=== PATIENT | male | born 1985 | race Caucasian/White ===

== ENCOUNTER 2024-05-13 13:26 | Emergency (ER) | payer OTHER, SELFPAY ==
--- NOTE | 2024-05-13 13:41 | ED_ITS ---
HPI - General Adult General Chief complaint: ETOH/Substance Use Stated complaint: STD testing/Substance abuse help Time Seen by Provider: 05/13/24 20:53 Source: patient, RN notes reviewed and old records reviewed Mode of arrival: ambulatory Limitations: no limitations History of Present Illness ED Provider: Gerald SERRANO narrative: 39-year-old male presents for evaluation of ?I want to get clean. ? Patient states that he actively uses heroin, fentanyl, cocaine. He last use this morning. He reports he uses a bundle to a bundle and a half of heroin daily. He endorses generalized body aches but no other complaints pain Denies any headache, chest pain, shortness of breath pain Denies any abdominal pain, nausea vomiting He is interested in STD testing. He denies any specific known exposure. Denies any burning with urination, urethral discharge Patient reports a history of ?mental health issues but no medical issues. Patient states that he is not currently depressed or suicidal Related Data Previous Rx's ?Medication ?Instructions ?Recorded doxycycline hyclate 100 mg capsule 100 mg PO BID 10 days #20 caps 05/14/24 Allergies Allergy/AdvReac Type Severity Reaction Status Date / Time amitriptyline Allergy Eye Verified 05/13/24 13:45 Swelling Review of Systems 2 Constitutional: Constitutional: Reports body ache(s), Denies chills, Denies fever(s), Denies frequent falls and Denies headache(s) ENT: Denies headache(s) and Denies sore throat Cardiovascular: Cardiovascular: Denies chest pain and Denies dyspnea Respiratory: Respiratory: Denies cough and Denies dyspnea Gastrointestinal: Gastrointestinal: Denies abdominal pain, Denies nausea and Denies vomiting Musculoskeletal: Musculoskeletal: Denies back pain Integumentary/Breasts: Skin/Breast: Denies rash Neurologic: Denies frequent falls and Denies headache(s) Psychiatric: Psychiatric: Denies anxiety, Denies depression and Denies suicidal ideation PMF Social History Social History Smoked in Last 30 Days: Yes Use of substances other than those prescribed or required for medical reasons: Yes Substance Use Type: Heroin Substance Use Frequency: Daily Advance Directives: No Advance Directives Information Provided: No Physical Exam ED Vital Signs: Vital Signs - 24 hr 05/13/24 20:54 05/14/24 04:34 05/14/24 08:57 Temperature 97.7 F 98.4 F Pulse Rate 76 65 69 Respiratory Rate 16 14 17 Blood Pressure 133/53 L 125/61 113/52 L Pulse Oximetry 94 96 98 Oxygen Delivery Method Room Air Room Air Room Air 05/14/24 13:31 Temperature Pulse Rate 67 Respiratory Rate 18 Blood Pressure 123/63 Pulse Oximetry 98 Oxygen Delivery Method Room Air BMI result Body Mass Index 26.2 Const General: healthy appearing, comfortable, no acute distress, alert and awake Nutritional Appearance: well nourished Orientation/consciousness: patient oriented x3 HENMT Head: Yes normocephalic and Yes atraumatic Eyes Eyelids: Yes eyelids normal Conjunctivae: conjunctivae normal Sclerae: sclerae normal Corneas: corneas normal Pupils: Equal, round and reactive pupils present EOM: EOMs intact bilaterally Neck Neck: Yes full ROM Resp Effort & Inspection: normal respiratory effort, able to speak in complete sentences, no audible wheezes and not labored Auscultation: clear to auscultation bilaterally Skin General skin exam: elasticity normal Neuro General: patient oriented x3 Cranial nerves: Yes Equal, round and reactive pupils present and Yes Bilaterally intact EOM present Cognition (Neuro): normal cognition Extrem Other: Moving all extremities well without any obvious deformities Course Course Course Narrative: This is a Rapid Medical Examination (RME) performed by Senthil Haas PA-C in triage. Full HPI, ROS, assessment and treatment plan per primary provider in the Main ED. 39 yo male hx of IVDU, currently experiencing homelessness, here requesting detox. also requesting STD testing. admits to unprotected intercourse w/ STD exposure. denies dysuria, penile discharge, lesions. hx of herpes. requesting detox from heroin. last injected this morning. denies etoh consumption. denies si/hi. denies ah/vh/th. Plan: labs, UA, UDS, CTNG Reevaluation(s) Reevaluation #1: Patient will be going to [facility] [place] and will be sent there with a last dose letter. Will also give doxycycline for STD treatment. Time: 15:49 Medications Administered Discontinued Medications Generic Name Dose Route Start Last Admin Trade Name Freq PRN Reason Stop Dose Admin Methadone HCl 40 mg 05/14/24 10:37 05/14/24 11:44 Methadone Hcl 20 Mg/2 Ml Oral.Conc PO 05/14/24 10:38 40 mg ONCE ONE Administration Medical Decision Making Medical Decision Making [facility] Narrative: 39-year-old male with past medical history significant for substance abuse presents for evaluation requesting detox. He complains of generalized body aches but no more specific symptoms. He is afebrile, he is not tachycardic or hypoxic. His blood pressure is on the lower side at 133/53. His medical workup is significant for a mild anemia consistent with his baseline likely related to substance abuse. He has no significant electrolyte abnormalities warranting intervention. His carbon dioxide level is elevated to 32, this may be related to decreased respirations when he was using opiates this morning. He has a mild elevation of the AST and ALT consistent with his baseline also likely related to substance abuse. He has no abdominal pain, nausea vomiting. Patient's urinalysis shows a high specific gravity likely related to some mild degree of dehydration, he is able to hydrate orally. No evidence of UTI. Gonorrhea, chlamydia testing pending. He has no current symptoms and no known exposures, therefore we will defer any empiric treatment pending results of his testing Differential Diagnosis Differential Diagnoses: The differential diagnosis associated with the presentation includes Substance abuse Polysubstance abuse UTI STI Lab Data [facility] Lab Attestation statement: I reviewed the patient's lab results. 05/13/24 14:23 05/13/24 14:23 Labs: Lab Results 05/13/24 05/13/24 Range/Units 14:23 20:41 WBC 7.2 (4.8-10.8) X10*3/uL RBC 4.43 L (4.60-5.80) X10*6/uL Hgb 13.5 L (14.0-18.0) g/dl Hct 42.5 (42.0-52.0) % MCV 95.9 (80.0-98.0) fL MCH 30.5 (27.0-33.0) pg MCHC 31.8 (31.0-36.0) g/dl RDW 12.5 (11.0-16.0) % Plt Count 210 (160-400) X10*3/uL MPV 10.0 (9.4-12.4) fL Immature Gran % (Auto) 0.3 (0.0-0.4) % Neut % (Auto) 62.9 (45-73) % Lymph % (Auto) 27.8 (20-40) % [place] % (Auto) 7.3 (2-11) % Eos % (Auto) 1.1 (0-4) % Baso % (Auto) 0.6 (0-2) % Lymph # (Auto) 2.0 (1.2-4.9) X10*3/uL [place] # (Auto) 0.5 (0.1-1.2) X10*3/uL Eos # (Auto) 0.1 (0.0-0.4) X10*3/uL Baso # (Auto) 0.0 (0.0-0.2) X10*3/uL Abs Immat Gran (auto) 0.02 (0.00-0.03) X10*3/uL Absolute Neuts (auto) 4.5 (2.0-8.3) x10*3/uL Absolute Nucleated RBC 0.000 (0.0-0.012) X10*3/uL Nucleated RBC % (auto) 0.0 (0.0-0.2) /100WBC Sodium 141 (135-145) mmol/L Potassium 4.4 (3.3-5.1) mmol/L Chloride 103 (96-108) mmol/L Carbon Dioxide 32 H (22-29) mmol/L Anion Gap 10 L (12-20) BUN 23 H (9-16) mg/dL Creatinine 1.10 (0.5-1.4) mg/dL Estim Creat Clear Calc 82.6 Estimated GFR > 60 Random Glucose 138 H (60-115) mg/dL Calcium 9.5 (8.4-10.2) mg/dL Magnesium 2.1 (1.6-2.6) mg/dL Total Bilirubin 0.4 (0.0-1.0) mg/dL AST 99 H (5-37) U/L ALT 52 H (0-40) U/L Alkaline Phosphatase 94 (39-117) U/L Total Protein 7.2 (6.5-8.0) g/dL Albumin 3.9 (3.5-5.0) g/dL Lipase 90 H (8-78) U/L Urine Color Yellow Urine Appearance Clear Urine pH 5.5 (5.0-9.0) Ur Specific [place] >= 1.030 H (1.005-1.025) Urine Protein Negative (Neg-Trace) mg/dL Urine Glucose (UA) Negative (Negative) mg/dL Urine Ketones Negative (Negative) mg/dL Urine Blood Negative (Negative) Urine Nitrite Negative (Negative) Ur Leukocyte Esterase Negative (Negative) Salicylates < 5.0 L (15-30) mg/dL Urine Opiates Screen POSITIVE H (Not Detect) Ur Buprenorphine Scrn Not Detected (Not Detect) ng/mL Ur Oxycodone Screen Not Detected (Not Detect) ng/mL Urine Methadone Screen Not Detected (Not Detect) ng/mL Urine Fentanyl Screen POSITIVE H (Not Detect) Ur Barbiturates Screen Not Detected (Not Detect) Ur Phencyclidine Scrn Not Detected (Not Detect) Ur Amphetamines Screen Not Detected (Not Detect) U Benzodiazepines Scrn Not Detected (Not Detect) Urine Cocaine Screen POSITIVE H (Not Detect) U Marijuana (THC) Screen POSITIVE H (Not Detect) Ethyl Alcohol < 10 mg/dL Chlam trachomat DNA PCR NOT DETECTED (Not Detect.) N.gonorrhoeae DNA (PCR) NOT DETECTED (Not Detect.) Critical Care Time Critical Care Time Critical Care Time: No Discharge Plan Discharge Clinical Impression: Substance abuse, Screen for STD (sexually transmitted disease) Patient Disposition: Home, Self-Care Additional Instructions: Take your medications as prescribed. If you were prescribed antibiotics today, it is important that you take your medication to their entirety, do not skip any doses, do not finish them early. Follow-up with your primary care provider this week. Return to the emergency department with new or worsening symptoms. Such as fevers, chills, chest pain, shortness of breath, nausea, vomiting, dizziness, headache, vision changes, lethargy In case of emergency call 911 Prescriptions: New doxycycline hyclate 100 mg capsule 100 mg PO BID 10 Days Qty: 20 0RF Referrals: Chiquita Brand CNP [Nurse Practitioner] - 2 days Maciej Cheney MD [Primary Care Provider] - 2 days Print Language: Arabic
[2024-05-13 13:42] VITALS: BP 126/72; PULSE 79; RESP 16; TEMP 37; O2SAT 95; BMI 26.2
[2024-05-13 14:27] LABS: MANUAL DIFF FLAG NO
[2024-05-13 14:31] LABS: Basophils Percent Auto 0.6 % (0-2); Eosinophils Absolute Auto 0.1 X10*3/uL (0.0-0.4); Eosinophils Percent Auto 1.1 % (0-4); Hematocrit 42.5 % (42.0-52.0); Hemoglobin 13.5 g/dl (14.0-18.0); Imm Gran Abs Auto 0.02 X10*3/uL (0.00-0.03); Imm Gran Pct Auto 0.3 % (0.0-0.4); Lymphocytes Percent Auto 27.8 % (20-40); Mean Corpuscular HGB Conc 31.8 g/dl (31.0-36.0); Mean Corpuscular Hemoglobin 30.5 pg (27.0-33.0); Mean Corpuscular Volume 95.9 fL (80.0-98.0); Monocytes Absolute Auto 0.5 X10*3/uL (0.1-1.2); Monocytes Percent Auto 7.3 % (2-11); Neutrophils Absolute Auto 4.5 x10*3/uL (2.0-8.3); Neutrophils Percent Auto 62.9 % (45-73); Platelet Count 210 X10*3/uL (160-400); Red Blood Count 4.43 X10*6/uL (4.60-5.80); Red Cell Distribution Width 12.5 % (11.0-16.0); White Blood Count 7.2 X10*3/uL (4.8-10.8)
[2024-05-13 14:52] LABS: Alanine Aminotransferase 52 U/L (0-40); Albumin Level 3.9 g/dL (3.5-5.0); Alkaline Phosphatase 94 U/L (39-117); Anion Gap 10 (12-20); Aspartate Amino Transferase 99 U/L (5-37); Bilirubin Total 0.4 mg/dL (0.0-1.0); Blood Urea Nitrogen 23 mg/dL (9-16); Calcium 9.5 mg/dL (8.4-10.2); Carbon Dioxide 32 mmol/L (22-29); Chloride 103 mmol/L (96-108); Creatinine Clr Calc Pharmacy 82.6; Estimated Glomerular Filt Rate > 60; Ethanol < 10 mg/dL; Glucose Random 138 mg/dL (60-115); Lipase 90 U/L (8-78); Magnesium 2.1 mg/dL (1.6-2.6); Potassium 4.4 mmol/L (3.3-5.1); Sodium 141 mmol/L (135-145); Total Protein 7.2 g/dL (6.5-8.0)
[2024-05-13 14:53] LABS: Salicylate < 5.0 mg/dL (15-30)
--- NOTE | 2024-05-13 20:43 | PC.NURSE ---
urine specimens collected and sent to lab for analysis. awaiting results.
--- NOTE | 2024-05-13 20:44 | PC.NURSE ---
Given turkey sandwich, cranberry juice, and applesauce to eat. Pt is anxious, pacing, was punching the bed but is redirectable and cooperative with this RN. Speaking loudly at times, but is generally pleasant and compliant. Pt reports feeling withdrawal symptoms coming on. Security aware. Awaiting provider evaluation.
[2024-05-13 20:50] LABS: Appearance Urine Clear; Color Urine Yellow; Glucose Urine UA Negative (Negative); Leukocyte Esterase Urine Negative (Negative); Nitrite Urine Negative (Negative); PH 5.5 (5.0-9.0); Specific Gravity - Urine >= 1.030 (1.005-1.025); Urine Blood Negative (Negative); Urine Ketones Negative (Negative); Urine Protein Negative (Neg-Trace)
[2024-05-13 20:54] VITALS: BP 133/53; PULSE 76; RESP 16; TEMP 36.5; O2SAT 94
[2024-05-13 20:58] LABS: Amphetamine Screen Urine Not Detected (Not Detect); Barbiturates, Urine Not Detected (Not Detect); Benzodiazepines Screen Urine Not Detected (Not Detect); Buprenorphine Scr Not Detected (Not Detect); Cannabinoid Screen Urine POSITIVE (Not Detect); Cocaine Screen Urine POSITIVE (Not Detect); Fentanyl, urine POSITIVE (Not Detect); Methadone Screen, Urine Not Detected (Not Detect); Opiate Screen Urine POSITIVE (Not Detect); Oxycodone Screen Urine Not Detected (Not Detect); Phencyclidine Screen Urine Not Detected (Not Detect)
--- NOTE | 2024-05-13 21:32 | PC.NURSE ---
Patient sleeping at this time. Respirations even & unlabored. Care ongoing.
--- NOTE | 2024-05-14 00:10 | PC.NURSE ---
assumed care of pt at 2345. PT resting in bed, respirations even and unlabored
[2024-05-14 02:58] LABS: CT PCR NOT DETECTED (Not Detect.); NG PCR NOT DETECTED (Not Detect.)
[2024-05-14 04:34] VITALS: BP 125/61; PULSE 65; RESP 14; O2SAT 96
--- NOTE | 2024-05-14 08:08 | PC.NURSE ---
pt is currently asleep, respirations even and unlabored, pt is waiting to speak with care team
[2024-05-14 08:57] VITALS: BP 113/52; PULSE 69; RESP 17; TEMP 36.9; O2SAT 98
--- NOTE | 2024-05-14 10:40 | PC.NURSE ---
recovery team at bedside speaking to the pt
--- NOTE | 2024-05-14 10:41 | MHC.RECOVRN ---
Met with pt in ED6H. Pt AOX4, cooperative but anxious, grimacing, restless, and irritable. Pt endorses nausea, Pt reported he has been using heroin 2-3 bundles daily and crack cocaine $50-$200 worth daily via snorting and IV. Pt has a long history of ATS admissions in the past and is treatment seeking, wants detox. Pt not interested in going to [facility] but interested in other facilities as he is worried about people, places, things . Referrals to other facilities are being sent for review. Spoke with provider about pt's withdrawal symptoms and that pt is interested in starting methadone. Provider to order 40mg of methadone for pt.
--- NOTE | 2024-05-14 10:56 | PC.NURSE ---
pt keeps falling asleep, pt reports not feeling well, states that her is withdrawing from heroin, having general body aches, reports slight nausea and feeling dizzy, pt states that he would like to go to detox, pt denies using alcohol and denies si.
[2024-05-14] MEDS: methADONE HCl 20 MG/2 ML ORAL.CONC 40 MG PO (11:44)
--- NOTE | 2024-05-14 12:01 | MHC.RECOVRN ---
Referrals have been sent to [facility], [facility], [facility], and [facility]. Waiting to hear back.
--- NOTE | 2024-05-14 12:09 | MHC.RECOVRN ---
More referrals faxed to [facility], [facility], and [facility]. Waiting to hear back.
[2024-05-14 13:31] VITALS: BP 123/63; PULSE 67; RESP 18; O2SAT 98
--- NOTE | 2024-05-14 15:42 | MHC.RECOVRN ---
Pt accepted at [facility] in [place] for detox. He is expected there elin (or before 7pm).
--- NOTE | 2024-05-14 16:00 | PC.NURSE ---
pt got excepted [facility]
[2024-05-14 16:12] VITALS: BP 111/61; PULSE 74; RESP 16; TEMP -17.7; TEMP 0; O2SAT 98
[2024-05-14 16:13] VITALS: BP 111/61; PULSE 74; RESP 16; TEMP -17.7; TEMP 0; O2SAT 98
--- NOTE | 2024-05-14 16:42 | MHC.RECOVRN ---
Pt sent to [facility] in [place] via [employer].
== END 2024-05-14 16:15 | disposition home or self-care (01) ==
PROVIDERS: Physician Assistant Medical; Emergency Provider Emergency Medicine; PCP Internal Medicine
DX: F11.10 Opioid abuse, uncomplicated (principal); F14.10 Cocaine abuse, uncomplicated; R11.2 Nausea with vomiting, unspecified; Z20.2 Contact with and (suspected) exposure to infections with a predominantly sexual mode of transmission; Z51.81 Encounter for therapeutic drug level monitoring; Z79.899 Other long term (current) drug therapy
CPT/HCPCS: 36415; 80053; 80179; 80307; 81003; 83690; 83735; 85025; 87491; 87591; 99284

== ENCOUNTER 2024-12-15 22:33 | Emergency (ER) | payer OTHER, SELFPAY ==
[2024-12-15 23:18] VITALS: BP 146/80; BP 148/82; PULSE 100; PULSE 95; RESP 18; TEMP 37; O2SAT 98; BMI 32.5
[2024-12-15] MEDS: HaloperidoL 5 MG TABLET PO (23:26)
[2024-12-15] MEDS: LORazepam 1 MG TABLET 2 MG PO (23:27)
--- NOTE | 2024-12-15 23:46 | PC.NURSE ---
program management intern called while patient was coming on unit, adela [phone] states patient was on appt today and saw ex gf may have obtained drugs at this time
[2024-12-16 00:29] LABS: Appearance Urine Clear; Color Urine Yellow; Glucose Urine UA Negative (Negative); Leukocyte Esterase Urine Negative (Negative); Nitrite Urine Negative (Negative); UMIC TRIGGER UA YES; Urine Blood Negative (Negative); Urine Ketones Trace mg/dL (Negative); Urine Protein 30 (1+) mg/dL (Neg-Trace)
--- NOTE | 2024-12-16 00:40 | ED_ITS ---
HPI - Psych General Chief Complaint: Psychiatric Symptoms Stated Complaint: psych, ?drug use, manic Time Seen by Provider: 12/15/24 22:53 History of Present Illness HPI Narrative: Patient is a 39-year-old male question history of polysubstance abuse. About in the room. Agitated. Patient went into a program today. Saw his ex-girlfriend there may have gotten some drugs. While being searched patient got extremely agitated. He around his room. Related Data Home Medications ?Medication ?Instructions ?Recorded ?Confirmed albuterol sulfate 90 mcg/actuation 2 inh inhalation Q3-4H 12/16/24 12/16/24 aerosol inhaler buspirone 15 mg tablet 15 mg PO TID 12/16/24 12/16/24 clonidine HCl 0.1 mg tablet 0.1 mg PO TID PRN Anxiety 12/16/24 12/16/24 doxazosin 2 mg tablet 6 mg PO BEDTIME 12/16/24 12/16/24 fluticasone propionate 50 1 spray intranasal DAILY 12/16/24 12/16/24 mcg/actuation nasal spray,suspension quetiapine 300 mg tablet 300 mg PO BEDTIME 12/16/24 12/16/24 quetiapine 50 mg tablet 50 mg PO BID PRN Agitation 12/16/24 12/16/24 trazodone 50 mg tablet 50 - 100 mg PO BEDTIME PRN Insomnia 12/16/24 12/16/24 Allergies Allergy/AdvReac Type Severity Reaction Status Date / Time amitriptyline Allergy Eye Verified 12/15/24 23:24 Swelling Review of Systems 2 Review of Systems: Patient unable to answer detailed review of system PMFSH Past Medical History Attestation statement: The following information was validated with the patient. Social History Social History Substance Use Type: Heroin Advance Directives: No Advance Directives Information Provided: No Do you have a plan to hurt others: No Plan Physical Exam 2 Vital Signs: Vital Signs: Last Vital Signs Temp 98.1 F 12/16/24 15:18 Pulse 98 12/16/24 15:18 Resp 18 12/16/24 15:18 BP 109/52 L 12/16/24 15:18 Pulse Ox 98 12/16/24 15:18 O2 Del Method Room Air 12/16/24 15:18 BMI result Body Mass Index 32.5 Agitated male looks stated age Appearance: Agitated Eyes: Pupils equal, round and reactive to light. ENT: Pharynx normal. Neck: Normal inspection. Neck supple. No lymph nodes noted. No crepitus CVS: Normal heart rate and rhythm. Pulses normal. Normal S1 and S2 Respiratory: No respiratory distress. Breath sounds normal. No Wheezing. No rales Abdomen: Soft and nontender. No rigidity. No distention. good BS x4 Skin: Skin warm and dry. Normal skin color. Normal skin turgor. Extremities: No lower extremity edema. Neurovascular intact to all extremities. No Lacerations. No Rash Neuro: Agitated no acute distress walking around the room. Cranial nerves grossly intact Course Course Course Narrative: Time: 07:21 Date: 12/16/24 Provider: Michelle Jackson DO Patient in physician observation for psychiatric evaluation.? needed medications for agitation last night - did improve his agitation. No current complaints. VS stable.? pending CARE team evaluation. Will continue to monitor. Reevaluation(s) Reevaluation #1: Time: 16:34 Date: 12/16/24 Provider: Michelle Jackson DO Physician observation ended at 530pm. Patient has been cleared for discharge by the CARE team. Will follow up as an outpatient. Medications Administered Generic Name Dose Route Start Last Admin Trade Name Freq PRN Reason Stop Dose Admin Buspirone HCl 15 mg 12/16/24 09:00 12/16/24 15:50 Buspirone Hcl 5 Mg Tablet PO 15 mg TID YECENIA Administration Clonidine HCl 0.1 mg 12/16/24 03:44 12/16/24 06:37 Clonidine Hcl 0.1 Mg Tablet PO 0.1 mg TID PRN Administration Anxiety Protocol Fluticasone Propionate 1 spray 12/16/24 09:00 12/16/24 08:22 Fluticasone Propionate Nasal 16 Gm [place] NOSTRIL-B 1 spray DAILY YECENIA Administration Discontinued Medications Generic Name Dose Route Start Last Admin Trade Name Freq PRN Reason Stop Dose Admin Diazepam 10 mg 12/15/24 22:53 12/15/24 23:14 Diazepam 10 Mg/2 Ml Cartridge IVPUSH 12/15/24 22:54 Not Given STAT STA Diphenhydramine HCl 50 mg 12/15/24 22:53 12/16/24 00:42 Diphenhydramine Hcl 50 Mg/Ml Vial IM 12/15/24 22:54 Not Given ONCE ONE Haloperidol 5 mg 12/15/24 23:17 12/15/24 23:26 Haloperidol 5 Mg Tablet PO 12/15/24 23:18 5 mg ONCE ONE Administration Haloperidol Lactate 5 mg 12/15/24 22:53 12/16/24 00:43 Haloperidol Lactate 5 Mg/Ml Vial IM 12/15/24 22:54 Not Given ONCE ONE Lorazepam 2 mg 12/15/24 23:17 12/15/24 23:27 Lorazepam 1 Mg Tablet PO 12/15/24 23:18 2 mg ONCE ONE Administration Olanzapine 10 mg 12/16/24 00:44 12/16/24 00:47 Olanzapine Odt 10 Mg Tab.Rapdis TRANSLINGU 12/16/24 00:45 10 mg ONCE ONE Administration Medical Decision Making Medical Decision Making MDM Narrative: Patient appeared extremely agitated question secondary to drugs. Was given Haldol Ativan orally with only moderate relief. Will give additional dose of Zyprexa at this point. Will monitor very carefully. Tox screen came back positive for opiates. Positive for cocaine. Additional medication given for sedation. Crisis evaluation pending. Lab Data 12/16/24 08:46 12/16/24 08:46 Labs: Lab Results 12/16/24 12/16/24 Range/Units 00:17 08:46 WBC 13.2 H (4.8-10.8) X10*3/uL RBC 4.16 L (4.60-5.80) X10*6/uL Hgb 12.7 L (14.0-18.0) g/dl Hct 37.2 L (42.0-52.0) % MCV 89.4 (80.0-98.0) fL MCH 30.5 (27.0-33.0) pg MCHC 34.1 (31.0-36.0) g/dl RDW 13.3 (11.0-16.0) % Plt Count 190 (160-400) X10*3/uL MPV 9.2 L (9.4-12.4) fL Immature Gran % (Auto) 0.3 (0.0-0.4) % Neut % (Auto) 69.5 (45-73) % Lymph % (Auto) 23.1 (20-40) % [place] % (Auto) 6.1 (2-11) % Eos % (Auto) 0.5 (0-4) % Baso % (Auto) 0.5 (0-2) % Lymph # (Auto) 3.0 (1.2-4.9) X10*3/uL [place] # (Auto) 0.8 (0.1-1.2) X10*3/uL Eos # (Auto) 0.1 (0.0-0.4) X10*3/uL Baso # (Auto) 0.1 (0.0-0.2) X10*3/uL Abs Immat Gran (auto) 0.04 H (0.00-0.03) X10*3/uL Absolute Neuts (auto) 9.2 H (2.0-8.3) x10*3/uL Absolute Nucleated RBC 0.000 (0.0-0.012) X10*3/uL Nucleated RBC % (auto) 0.0 (0.0-0.2) /100WBC Sodium 136 (135-145) mmol/L Potassium 3.7 (3.3-5.1) mmol/L Chloride 101 (96-108) mmol/L Carbon Dioxide 28 (22-29) mmol/L Anion Gap 11 L (12-20) BUN 20 H (9-16) mg/dL Creatinine 0.98 (0.5-1.4) mg/dL Estim Creat Clear Calc 115.5 Estimated GFR > 60 Random Glucose 108 (60-115) mg/dL Calcium 8.8 D (8.4-10.2) mg/dL Total Bilirubin 1.6 H (0.0-1.0) mg/dL AST 60 H (5-37) U/L ALT 24 (0-40) U/L Alkaline Phosphatase 62 (39-117) U/L Total Protein 7.2 (6.5-8.0) g/dL Albumin 4.3 (3.5-5.0) g/dL Urine Color Yellow Urine Appearance Clear Urine pH 5.0 (5.0-9.0) Ur Specific [place] 1.020 (1.005-1.025) Urine Protein 30 (1+) H (Neg-Trace) mg/dL Urine Glucose (UA) Negative (Negative) mg/dL Urine Ketones Trace (Negative) mg/dL Urine Blood Negative (Negative) Urine Nitrite Negative (Negative) Ur Leukocyte Esterase Negative (Negative) Urine RBC 0-2 (0-2) /HPF Urine WBC 0-5 (0-5) /HPF Ur Squamous Epith Cells 3-5 (0-2) /HPF Urine Bacteria None Seen (None Seen) Hyaline Casts >20 (0-2) /LPF Granular Casts Present Salicylates < 5.0 L (15-30) mg/dL Urine Opiates Screen POSITIVE H (Not Detect) Ur Buprenorphine Scrn Not Detected (Not Detect) ng/mL Ur Oxycodone Screen Not Detected (Not Detect) ng/mL Urine Methadone Screen Not Detected (Not Detect) ng/mL Urine Fentanyl Screen POSITIVE H (Not Detect) Acetaminophen < 3 (<30) mcg/mL Ur Barbiturates Screen Not Detected (Not Detect) Ur Phencyclidine Scrn Not Detected (Not Detect) Ur Amphetamines Screen Not Detected (Not Detect) U Benzodiazepines Scrn Not Detected (Not Detect) Urine Cocaine Screen POSITIVE H (Not Detect) U Marijuana (THC) Screen Not Detected (Not Detect) Ethyl Alcohol < 10 mg/dL Discharge Plan Discharge Clinical Impression: Acute anxiety Patient Disposition: Home, Self-Care Instructions: Anxiety (ED) Additional Instructions: You were seen in our Emergency Department today for treatment of a behavioral health issue. It is important after your visit that you follow up with either your behavioral health provider or a primary care doctor within 7 days.? If you have trouble finding a therapist you can reach out to [address] [phone] The National Suicide and Crisis Lifeline can be reached 7 days a week 24 hours a day.? Call 988 to speak with someone.? Return for any worsening symptoms or concerns such as thoughts of self harm or harm to others. Please call 911 if you feel your mental health is worsening.? Prescriptions: No Action quetiapine 300 mg tablet 300 mg PO BEDTIME buspirone 15 mg tablet 15 mg PO TID clonidine HCl 0.1 mg tablet 0.1 mg PO TID PRN (Reason: Anxiety) trazodone 50 mg tablet 50 - 100 mg PO BEDTIME PRN (Reason: Insomnia) doxazosin 2 mg tablet 6 mg PO BEDTIME fluticasone propionate 50 mcg/actuation spray,suspension 1 spray intranasal DAILY albuterol sulfate 90 mcg/actuation HFA aerosol inhaler 2 inh inhalation Q3-4H quetiapine 50 mg tablet 50 mg PO BID PRN (Reason: Agitation) Interventions: [place]-Suicide Risk Severity Scale Last Done: 12/15/24 23:38 Print Language: Lithuanian
[2024-12-16 00:41] LABS: Bacteria Urine None Seen (None Seen); Granular Casts Urine Present; Hyaline Casts Urine >20 /LPF (0-2); RBC Urine 0-2 /HPF (0-2); WBC Urine 0-5 /HPF (0-5)
[2024-12-16] MEDS: OLANZapine ODT 10 MG TAB.RAPDIS TRANSLINGU (00:47)
[2024-12-16 00:58] LABS: Amphetamine Screen Urine Not Detected (Not Detect); Barbiturates, Urine Not Detected (Not Detect); Benzodiazepines Screen Urine Not Detected (Not Detect); Buprenorphine Scr Not Detected (Not Detect); Cannabinoid Screen Urine Not Detected (Not Detect); Cocaine Screen Urine POSITIVE (Not Detect); Fentanyl, urine POSITIVE (Not Detect); Methadone Screen, Urine Not Detected (Not Detect); Opiate Screen Urine POSITIVE (Not Detect); Oxycodone Screen Urine Not Detected (Not Detect); Phencyclidine Screen Urine Not Detected (Not Detect)
--- NOTE | 2024-12-16 01:37 | PC.NURSE ---
late entry patient had loud somewhat redirectable agitated bx for about 3 hours while medications began to modify patient impaired behavior.
[2024-12-16 06:37] VITALS: BP 146/80
[2024-12-16] MEDS: cloNIDine HCL 0.1 MG TABLET PO (06:37)
[2024-12-16] MEDS: busPIRone HCl 5 MG TABLET 15 MG PO ×2 (08:22→15:50)
[2024-12-16] MEDS: Fluticasone Propionate Nasal 16 GM SPRAY 1 SPRAY NOSTRIL-B (08:22)
--- NOTE | 2024-12-16 08:38 | PC.NURSE ---
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
[2024-12-16 08:52] LABS: MANUAL DIFF FLAG NO
[2024-12-16 08:54] LABS: Basophils Absolute Auto 0.1 X10*3/uL (0.0-0.2); Basophils Percent Auto 0.5 % (0-2); Eosinophils Absolute Auto 0.1 X10*3/uL (0.0-0.4); Eosinophils Percent Auto 0.5 % (0-4); Hematocrit 37.2 % (42.0-52.0); Hemoglobin 12.7 g/dl (14.0-18.0); Imm Gran Abs Auto 0.04 X10*3/uL (0.00-0.03); Imm Gran Pct Auto 0.3 % (0.0-0.4); Lymphocytes Percent Auto 23.1 % (20-40); Mean Corpuscular HGB Conc 34.1 g/dl (31.0-36.0); Mean Corpuscular Hemoglobin 30.5 pg (27.0-33.0); Mean Corpuscular Volume 89.4 fL (80.0-98.0); Mean Platelet Volume 9.2 fL (9.4-12.4); Monocytes Absolute Auto 0.8 X10*3/uL (0.1-1.2); Monocytes Percent Auto 6.1 % (2-11); Neutrophils Absolute Auto 9.2 x10*3/uL (2.0-8.3); Neutrophils Percent Auto 69.5 % (45-73); Platelet Count 190 X10*3/uL (160-400); Red Blood Count 4.16 X10*6/uL (4.60-5.80); Red Cell Distribution Width 13.3 % (11.0-16.0); White Blood Count 13.2 X10*3/uL (4.8-10.8)
[2024-12-16 09:10] LABS: Acetaminophen LAB < 3 mcg/mL (<30); Salicylate < 5.0 mg/dL (15-30)
[2024-12-16 09:11] LABS: Alanine Aminotransferase 24 U/L (0-40); Albumin Level 4.3 g/dL (3.5-5.0); Alkaline Phosphatase 62 U/L (39-117); Anion Gap 11 (12-20); Aspartate Amino Transferase 60 U/L (5-37); Bilirubin Total 1.6 mg/dL (0.0-1.0); Blood Urea Nitrogen 20 mg/dL (9-16); Calcium 8.8 mg/dL (8.4-10.2); Carbon Dioxide 28 mmol/L (22-29); Chloride 101 mmol/L (96-108); Creatinine Clr Calc Pharmacy 115.5; Estimated Glomerular Filt Rate > 60; Ethanol < 10 mg/dL; Glucose Random 108 mg/dL (60-115); Potassium 3.7 mmol/L (3.3-5.1); Sodium 136 mmol/L (135-145); Total Protein 7.2 g/dL (6.5-8.0)
--- NOTE | 2024-12-16 10:39 | PC.NURSE ---
Patient declining to go to xray- tech and security at bedside attempting to transport, patient stating no
[2024-12-16 15:18] VITALS: BP 109/52; PULSE 98; RESP 18; TEMP 36.7; O2SAT 98
[2024-12-16 16:53] VITALS: BP 109/52; PULSE 98; RESP 18; TEMP 36.7; O2SAT 98
== END 2024-12-16 16:54 | disposition home or self-care (01) ==
PROVIDERS: Emergency Provider Emergency Medicine Emergency Medical Services
DX: F41.9 Anxiety disorder, unspecified (principal); R45.1 Restlessness and agitation; F19.10 Other psychoactive substance abuse, uncomplicated
CPT/HCPCS: 36415; 80053; 80143; 80179; 80307; 81001; 85025; 99285; S9485